=== PATIENT | female | born 1945 | race Caucasian/White ===

== ENCOUNTER → 2017-07-30 | Outpatient (CLI) | payer MEDICARE, OTHER ==
--- NOTE | 2017-07-30 18:00 | Diagnostic Imaging Report ---
PROCEDURE:SI JOINTS MORE THAN 3 VIEWS INDICATION:Low back pain COMPARISON:None. FINDINGS: Mild osteopenia. No acute displaced fracture or dislocation. Mild degenerative changes in bilateral sacroiliac joints. Degenerative changes with evidence of joint space narrowing in bilateral hip joints, right greater than left. Degenerative disc changes in the lower lumbosacral spine, predominantly L5-S1. Sacral arches are preserved. Distal portion of IVC filter visualized. Pelvic phleboliths. 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 Degenerative changes with joint space narrowing in bilateral hip joints, right greater than left. Degenerative disc changes in the lower lumbosacral spine. Jean Carlos Walsh M.D. Dictated by: Jean Carlos Walsh M.D. on 07/30/2017 at 18:09 Electronically approved by: Jean Carlos Walsh M.D. on 07/30/2017 at 18:09
== END ==
LOC: RAD 12:06
PROVIDERS: ATTEND Student in an Organized Health Care Education/Training Program
DX: L40.50 Arthropathic psoriasis, unspecified (principal); M16.10 Unilateral primary osteoarthritis, unspecified hip; Z79.899 Other long term (current) drug therapy
CPT/HCPCS: 72202

== ENCOUNTER → 2018-12-09 | Outpatient (CLI) | payer MEDICARE, OTHER ==
--- NOTE | 2018-12-09 14:08 | Diagnostic Imaging Report ---
EXAMINATION: CHEST 2 VIEWS INDICATION: Abnormal chest x-ray. History of pneumonia. COMPARISON: None FINDINGS: TUBES and LINES: None. LUNGS: Lungs are well inflated. Mild patchy bibasilar opacities, likely atelectasis. No evidence of lobar pneumonia or pulmonary edema. PLEURA: No pleural effusion or pneumothorax. HEART AND MEDIASTINUM: The cardiomediastinal silhouette is unremarkable. BONES AND SOFT TISSUES: No acute osseous abnormality. UPPER ABDOMEN: No free air under the diaphragm. IMPRESSION: No acute radiographic abnormality. Mild patchy bibasilar opacities likely atelectasis. No evidence of lobar pneumonia. Comparison with prior chest radiograph could be helpful. Signed by: Dr. Azeb Arreguin MD on 12/09/2018 2:04 PM
== END ==
LOC: RAD 12:40
PROVIDERS: ATTEND Family Medicine
DX: R93.89 Abnormal findings on diagnostic imaging of other specified body structures (principal)
CPT/HCPCS: 71046